=== PATIENT | female | born 1955 ===

== ENCOUNTER 2018-01-21 04:23 | Inpatient (IN) | payer MEDICARE ==
[2018-01-21] VITALS (8 sets, daily range): BP systolic 96–126; BP diastolic 67–88
[~2018-01-21] VITALS: Ht 149.9 cm; Wt 87.0 kg
--- NOTE | 2018-01-21 04:30 | NUR ---
PT TO RM 13 VIA EMS.
--- NOTE | 2018-01-21 04:42 | NUR ---
PT LYING ON R SIDE. REFUSED TO LAY ON BACK DUE TO PAIN.
--- NOTE | 2018-01-21 04:43 | NUR ---
DR LOCKETT AT BEDSIDE.
[2018-01-21] MEDS ORDERED: ACIPHEX20 MG PO (04:48)
[2018-01-21] MEDS ORDERED: METHADONE HCL10 MG PO (04:48)
[2018-01-21] MEDS ORDERED: AMLODIPINE BESYL5 MG PO (04:49)
[2018-01-21] MEDS ORDERED: LOSARTAN POT50 MG PO (04:49)
[2018-01-21] MEDS ORDERED: ASPIRIN 8181 MG PO (04:49)
[2018-01-21 05:16] LABS: HEMATOCRIT 45.3 % (37.0-47.0); HEMOGLOBIN 14.3 g/dl (12.0-16.0); IMMATURE GRANULOCYTES 0.3 % (0.0-5.0); MEAN CELL VOLUME 86.3 fL CALC (80.0-100.0); MEAN CORPUSCULAR HGB 27.2 pG CALC (26.0-32.0); MEAN CORPUSCULAR HGB CONC 31.6 g/L CALC (32.0-36.0); NEUT# 12.7 thou/uL (2.00-7.15); RED BLOOD COUNT 5.25 mill/uL (4.20-5.60)
[2018-01-21 05:29] LABS: ALBUMIN 4.2 g/dL (3.2-5.0); ALKALINE PHOSPHATASE 139 u/l (38-126); AMYLASE 53 u/l (30-110); ANION GAP 16 (6-22 (CALC)); BUN 21 mg/dL (7-17); BUN/CREATININE RATIO 28 (12-20 (CALC)); CARBON DIOXIDE 25 mmol/l (22-30); CHLORIDE 102 mmol/l (95-108); CREATININE 0.7 mg/dL (0.5-1.0); GFR > 60 ML/MIN (>=60 (CALC)); GFR FOR AFR.AMER. > 60 ML/MIN (>=60 (CALC)); LIPASE 53 u/l (23-300); POTASSIUM 4.3 mmol/l (3.5-5.1); SGOT/AST 32 u/l (14-36); SODIUM 139 mmol/l (137-146)
[2018-01-21 05:41] LABS: MYOGLOBIN 71 ng/mL (0 - 62)
--- NOTE | 2018-01-21 05:57 | NUR ---
PT RELATED NAUSEA IS GONE AND PAIN IS MUCH IMPROVED. PT AMB TO BATHROOM.
--- NOTE | 2018-01-21 06:13 | NUR ---
PT TO CT.
[2018-01-21 06:25] LABS: URINE BILIRUBIN - DIPSTICK NEGATIVE (NEGATIVE); URINE BLOOD DIPSTICK NEGATIVE (NEGATIVE); URINE CLARITY TURBID; URINE COLOR YELLOW; URINE GLUCOSE - DIPSTICK NEGATIVE (NEGATIVE); URINE KETONE 15 mg/dL (NEGATIVE); URINE LEUK ESTERASE NEGATIVE (NEGATIVE); URINE NITRITE - DIPSTICK NEGATIVE (Negative); URINE PH 5.5 (4.5-8.0); URINE PROTEIN - DIPSTICK NEGATIVE (NEG-TRACE); URINE SPECIFIC GRAVITY >=1.030
--- NOTE | 2018-01-21 06:34 | NUR ---
PT RETURNED FROM CT. NO C/O PAIN OR NAUSEA AT THIS TIME.
[2018-01-21 06:35] LABS: URINE BACTERIA FEW hpf; URINE SQUAMOUS EPITHELIAL CELL FEW EPI/hpf (0-FEW)
[2018-01-21 06:36] LABS: URINE MUCUS RARE hpf (NONE-FEW)
--- NOTE | 2018-01-21 06:50 | NUR ---
REPORT GIVEN TO SARAH RAE.
--- NOTE | 2018-01-21 07:00 | NUR ---
PT ALERT AND RESPONSIVE RT SIDE LYING IN NO DISTRESS, VSS.DENIES PAIN OR NAUSEA AT THIS TIME. LARGE HERNIA NOTED TO ENTIRE ABDOMEN, PT STATES HAS BEEN GETTING LARGER "FOR YEARS".
--- NOTE | 2018-01-21 07:47 | NUR ---
0705 PT ADAMENTLY REFUSES NG TUBE PLACEMENT AT THIS TIME. DISCUSSED RISKS OF SBO AND NEED FOR DECOMPRESSION OF STOMACH. PT STATES "I'LL LET YOU KNOW WHEN I NEED IT". PT DENIES NAUSEA AT THIS TIME.
--- NOTE | 2018-01-21 08:21 | NUR ---
SPOKE WITH DR ENNIS REGARDUING INCREASE IN PT NAUSEA AND REFUSAL OF NG TUBE. NO NEW ORDERS RECEIVED. DR ENNIS STATES HE IS ON HIS WAY IN AND WILL SEE PT.
--- NOTE | 2018-01-21 08:42 | NUR ---
PT STILL ADAMENTLY REFUSING NG TUBE. TRANSPORTED TO CT VIA STRETCHER IN STABLE CONDITION WIHT IN ATTENDANCE
--- NOTE | 2018-01-21 08:52 | NUR ---
PT CAME FROM ER VIA STRETCHER BY BUTCH MONTALVO. INVESTMENT ACCOUNTANT IN ROOM TO OBTAIN VS. SAFETY PRECAUTIONS REINFORCED AND CALL LIGHT IN REACH.
[2018-01-21] MEDS ORDERED: METHADONE10 M1 PO (11:10)
[2018-01-21] MEDS ORDERED: DOXEPIN HCL100 MG PO (11:17)
[2018-01-21] MEDS ORDERED: TIZANIDINE HCL4 MG PO (11:21)
[2018-01-21] MEDS ORDERED: OXYCODONE20 MG PO (11:24)
--- NOTE | 2018-01-21 11:41 | NUR ---
MEDICATED PT WITH ZOFRAN SEE EMAR. COOL WASHCLOTH PROVIDED. PT DENIES ANY OTHER NEEDS AT THIS TIME. CALL LIGHT IN REACH.
--- NOTE | 2018-01-21 12:00 | NUR ---
HUONG ASSISTED WITH NG TUBE PLACEMENT. PT TOELREATED WELL BUT THEN STARTED TO YELL FOR US TO REMOVED NG TUBE THAT IT HURTS. NG TUBE REMOVED. NOTIFEID DR. ENNIS.
--- NOTE | 2018-01-21 13:34 | NUR ---
ASSESSMENT DONE TELE IN PLACE. PT IS A&O X3. 22 LH THAT APPEARS HEALTHY. RESPS EVEN AND UNLABORED. PT DENIES NEEDS AT THIS TIME. CALL LIGHT IN REACH.
--- NOTE | 2018-01-21 13:59 | NUR ---
DR. WATTS AT BEDSIDE TO ASSESS PT.
--- NOTE | 2018-01-21 14:50 | NUR ---
PT WENT DOWN TO OR VIA STRETCHER BY JOYCE.
--- NOTE | 2018-01-21 18:47 | NUR ---
PT CAME FROM OR VIA BED BY BUTCH MENDOZA. PT IS DROWSY. 02 3L/MIN VIA NC. ABD BINDER IN PLACE AND X2 FRANCOIS TUBES IN PLACE. LR 75 INFUSING WELL. IN ROOM. CALL LIGHT IN REACH.
--- NOTE | 2018-01-21 19:15 | NUR ---
BEDSIDE REPORT RECEIVED FROM KAYY HEALY. PT IS RESTLESS WITH FACIAL GRIMACING AND MOANING/YELLING OUT IN PAIN. MOVING FROM LEFT TO RIGHT SIDE IN BED; ENCOURAGED TO LAY STILL UNTIL MEDICATION IS GIVEN, BUT ROLLS ONTO HER RIGHT SIDE. ABDOMINAL BINDER IN PLACE AND 2 FRANCOIS DRAINS LABELED #1 AND #2 WITH MINIMAL BLOODY DRAINAGE. PT APPEARS VERY ANXIOUS. SAFETY MEASURES IN PLACE.
--- NOTE | 2018-01-21 19:45 | NUR ---
MORHINE AND ATIVAN BOTH GIVEN IV AND PT ENCOURAGED TO RELAX. OXYGEN 2L NC ON AND OXYGEN SATURATION 95%. VS ARE STABLE. SCD'S ON. LUNGS CLEAR. AT BEDSIDE.
--- NOTE | 2018-01-21 20:20 | NUR ---
PT RESTING QUIETLY ON RIGHT SIDE WITH EYES CLOSED. MORPHINE AND ATIVAN EFFECTIVE. STATES HE WILL GO HOME NOW THAT SHE "HAS SETTLED DOWN."
--- NOTE | 2018-01-21 23:51 | NUR ---
MIDNIGHT TORADOL GIVEN; PT GUARDING ABDOMEN; PILLOW GIVEN FOR SPINLTING AND ABDOMINAL BINDER STILL IN PLACE. FRANCOIS DRAINS DRAINING SANGINOUS; EMPTIED AT THIS TIME FRANCOIS #1 5ML OUT; FRANCOIS #2 30ML OUT. PT EDUCATED ON IS; MORE RECEPTIVE AND TALKATIVE. METHADONE MEDICATION PUT IN MEDROOM FOR PHARMACY.
[2018-01-22 00:25] VITALS: BP 106/66
--- NOTE | 2018-01-22 01:52 | NUR ---
PT ASSISTED TO BSC X 1 PERSON ASSIST; UNABLE TO VOID AT THIS TIME. BLADDER SCAN REPORTS ONLY 75CC IN BLADDER. IV FLUIDS CONTINUE AT 75ML/HR. DILAUDID ADMINSTERED NOW. PT REQUESTING ICE.
--- NOTE | 2018-01-22 04:28 | NUR ---
PT RESTING IN BED WITH EYES CLOSED AND NO SIGNS OF DISTRSS. RESPIRATIONS EVEN AND UNLABORED ON OXYGEN. STILL HAS NOT VOIDED THIS SHIFT; WILL ASSIST TO BSC TO ENCOURGE VOID. SAFETY MEASURES IN PLACE. CALL LIGHT WITHIN REACH.
--- NOTE | 2018-01-22 05:30 | NUR ---
PT UP TO VOID 50ML OF DARK YELLOW CLEAR URINE. PVR 127ML. DENIES FEELING LIKE SHE NEEDS TO VOID, DENIES FULLNESS OR BLOAT SENSATION. MINIMAL PO INTAKE BESIDES ICE CHIPS AND FLUIDS INFUSING AT 75ML/HR. WILL CONTINUE TO MONITOR I&OS. ABDOMINAL BINDER REMOVED AND REPLACED R/T UPWARD MOVEMENT. MIDLINE CEM AND TEGADERM CDI; 2 LAP SITES CDI WITH FRANCOIS DRAIN IN EACH. ANOTHER 10ML OUTPUT FROM FRANCOIS #1 AND ANOTHER 20ML OUTPUT FROM FRANCOIS #2.
[2018-01-22 05:37] VITALS: BP 126/79
[2018-01-22 06:07] LABS: IMMATURE GRANULOCYTES 0.4 % (0.0-5.0); MEAN CELL VOLUME 88.2 fL CALC (80.0-100.0); MEAN CORPUSCULAR HGB CONC 31.8 g/L CALC (32.0-36.0); NEUT# 12.27 thou/uL (2.00-7.15); RED BLOOD COUNT 4.39 mill/uL (4.20-5.60); RED CELL DISTRI WIDTH 15.2 % (11.5-15.5)
[2018-01-22 06:08] LABS: HEMATOCRIT 38.7 % (37.0-47.0); HEMOGLOBIN 12.3 g/dl (12.0-16.0)
[2018-01-22 06:17] LABS: ALKALINE PHOSPHATASE 90 u/l (38-126); ANION GAP 11 (6-22 (CALC)); BILIRUBIN, TOTAL 0.7 mg/dL (0.0-1.4); BUN 18 mg/dL (7-17); BUN/CREATININE RATIO 21 (12-20 (CALC)); CARBON DIOXIDE 27 mmol/l (22-30); CHLORIDE 106 mmol/l (95-108); CREATININE 0.9 mg/dL (0.5-1.0); GFR > 60 ML/MIN (>=60 (CALC)); GFR FOR AFR.AMER. > 60 ML/MIN (>=60 (CALC)); MAGNESIUM 1.8 mg/dL (1.6-2.3); POTASSIUM 4.2 mmol/l (3.5-5.1); SGOT/AST 34 u/l (14-36); SODIUM 140 mmol/l (137-146)
[2018-01-22 06:21] LABS: ALBUMIN 3.2 g/dL (3.2-5.0); TOTAL PROTEIN 6.2 g/dL (6.3-8.2)
--- NOTE | 2018-01-22 07:45 | NUR ---
REPORT RECEIVED FROM BUTCH MARK. PT SLEEPING AT THIS TIME. CALL LIGHT WITHIN REACH.
--- NOTE | 2018-01-22 09:00 | NUR ---
PT SITTING UPRIGHT IN BED. REPORTS SEVERE ABDOMINAL PAIN. PAIN MEDS AND SCHEDULES REVIEWED. PLAN OF CARE DISCUSSED. DIET OF NPO EXCEPT ICE CHIPS REVIEWED. REPORTING OF CONCERNS ENCOURAGED. ABDOMINAOL BINDER IN PLACE. ABDOMINAL FRANCOIS DRAINS X 2 NOTED, DRAINING SANGINOUS FLUID. O2 SAT 84 % ON RA. O2 @ 3L VIA NC APPLIED, O2 RECOVERED TO 91%. LR @ 75ML/HR IN #22LH W/O DIFFICULTY. NO REDNESS/SWELLING. IS AT BEDSIDE. USE ENCOURAGED. PT STATES UNDERSTANDING.
[2018-01-22 09:10] VITALS: BP 138/87
[2018-01-22 11:45] VITALS: BP 144/83
--- NOTE | 2018-01-22 13:00 | NUR ---
DR. WATTS IN TO SEE PT. AT THIS TIME.
[2018-01-22 16:23] VITALS: BP 167/80
--- NOTE | 2018-01-22 16:30 | NUR ---
PT TRANSFERED TO CHAIR AT BEDSIDE. REPORTS LOTS OF PAIN W/ MOVEMENT. PILLOW SPLINTING ENCOURAGED. FAMILY AT BEDSIDE.
--- NOTE | 2018-01-22 17:05 | NUR ---
PT ASSISTED BACK TO BED PER HER REQUEST. SPLI NTED W/ TRANSFER. REPORTS PAIN W/ MOVEMENT. AT BEDSIDE AT THIS TIME.
--- NOTE | 2018-01-22 19:00 | NUR ---
Report recieved from offgoing nurse. pt resting in bed with eyes closed. no distress noted. no pain noted. bed in lowest position. call light in place. no other concerns at this time.will monitor.
[2018-01-22 20:00] VITALS: BP 119/71
--- NOTE | 2018-01-22 21:00 | NUR ---
meds tolerated well. pt pain addressed. v/s wnl. pt educated on using I/S. Pt educated on using pillow to reduce pain when coughing. pt voiced that it doesnt help. abdomial binder in place. drg clean, dry and intact. dee drains has serosangious drainage noted. will continue to monitor.
[2018-01-23] VITALS: BP 128/69; BP 142/91
[2018-01-23 04:30] VITALS: BP 150/92
[2018-01-23 05:26] LABS: HEMATOCRIT 35.9 % (37.0-47.0); HEMOGLOBIN 11.3 g/dl (12.0-16.0); IMMATURE GRANULOCYTES 0.4 % (0.0-5.0); MEAN CELL VOLUME 89.1 fL CALC (80.0-100.0); MEAN CORPUSCULAR HGB CONC 31.5 g/L CALC (32.0-36.0); NEUT# 10.55 thou/uL (2.00-7.15); RED BLOOD COUNT 4.03 mill/uL (4.20-5.60); RED CELL DISTRI WIDTH 15.3 % (11.5-15.5)
[2018-01-23 05:41] LABS: ALBUMIN 2.8 g/dL (3.2-5.0); ALKALINE PHOSPHATASE 84 u/l (38-126); ANION GAP 8 (6-22 (CALC)); BILIRUBIN, TOTAL 0.7 mg/dL (0.0-1.4); BUN 14 mg/dL (7-17); BUN/CREATININE RATIO 19 (12-20 (CALC)); CARBON DIOXIDE 30 mmol/l (22-30); CHLORIDE 104 mmol/l (95-108); CREATININE 0.7 mg/dL (0.5-1.0); GFR > 60 ML/MIN (>=60 (CALC)); GFR FOR AFR.AMER. > 60 ML/MIN (>=60 (CALC)); MAGNESIUM 1.9 mg/dL (1.6-2.3); POTASSIUM 4.4 mmol/l (3.5-5.1); SGOT/AST 27 u/l (14-36); SODIUM 138 mmol/l (137-146); TOTAL PROTEIN 5.8 g/dL (6.3-8.2)
--- NOTE | 2018-01-23 07:30 | NUR ---
PT RESTING INBED WITH EYES CLOSED AROUSES EASILY TO VERBAL STIMULI, COMPLAINS OF DISCOMFORT TO ABD, ABD BINDER IN PLACE INCISIONAL DRESSING CD&I WITH FRANCOIS X 2 DECOMPRESSED, WITH SERO/SANG DRNG IN BOTH #2 HAS > PUTPUT THAN #1, IVF INFUSING AT PRESCRIBED RATE, PT ENCOURAGED TO USE IS, EDUCATED REGARDING PLAN OF CARE TOLDAY INCULDING IS USAGE, OOB AMBULATION AND POSSIBLE STEVENS REMOVAL, VERBALIZES UNDERSTANDING AND IMMEDIATELY STATES WELL I WANT PAIN MEDICATION BEFORE I AMBULATED, EDUCATED REGARDING PAIN CONTROL, ALL QUESTIONS ANSWERED, CALL PERDUE WITHIN REACH, SAFETY MEASURES REINFORCED, WILL CONTINUE TO MONITOR.
--- NOTE | 2018-01-23 09:14 | NUR ---
PT TOLERATING ICE CHIPS, DOZES FREQUENTLY, CALL PERDUE WITHIN REACH, WILL CONTINUE TO MONITOR.
--- NOTE | 2018-01-23 10:44 | NUR ---
pt oob with mod assist, stood at bedside and ambulated in place, pt cries out and is mildly short of breath states that the abd binder is tight but she knows it needs to be, back into bed with same assist, pt is admitted 2 pack a day smoker o2 sats on room air after activity 76% placed back on nc and within 45 sec sats back up to 86%, comfort measures provided, call malagon within reach. Will continue to monitor.
[2018-01-23 11:28] VITALS: BP 119/57
--- NOTE | 2018-01-23 12:30 | NUR ---
in to see patient, plan of care discussed
--- NOTE | 2018-01-23 13:13 | NUR ---
MEDCIATED FOR COMPLAINTS OF PAIN ORDERED, PT STATES SHE SAT UP IN BED A FEW TIMES, NOT WITNESSED BY THIS NURSE
--- NOTE | 2018-01-23 14:12 | NUR ---
pt asked questions about rehab and whehter she should go, educated pt regarding her difficulty getting oob to stand at bedside today on PO day #2 and that she was independent prior to arrival to have surgery, verbalizes aunderstanding and is asking for case mgmt to talk to her about options.
--- NOTE | 2018-01-23 15:37 | NUR ---
PT AT BEDSIDE FOR EVAL AND TREAT VISITOR ALSO AT BEDSIDE
[2018-01-23 15:59] VITALS: BP 146/87
--- NOTE | 2018-01-23 16:08 | NUR ---
REPORT RECEIVED FROM TASH, INTRODUCED SELF TO PT. PT C/O PAIN 11/26 MEDICATED PER APR. PT SITTING IN RECLINER, CALL LIGHT IN REACH,CONTINUE TO MONITOR.
--- NOTE | 2018-01-23 18:22 | NUR ---
ENTERED ROOM, PT RESTING IN BED ,PT STATES SHE WOULD RATHER HAVE THE DILUADID INSTEAD OF THE TORADOL. PT MEDICATED FOR PAIN 10/27 WITH DILAUDID. CALL LIGHT IN REACH,CONTINUE TO MONITOR.
--- NOTE | 2018-01-23 19:00 | NUR ---
REPORT RECIEVED FROM OFFGOING NURSE. PT RESTING IN BED WITH EYES CLOSED. IV PATENT. DRG CLEAN DRY AND INTACT. BOWEL SOUNDS PRESENT. PT ENCOURAGE TO USE I/S AND AMBULATE. PT VOICED UNDERSTANDING. BED IN LOWEST POSTION.CALL LIGHT WITHIN REACH. WILL CONTINUE TO MONITOR.
[2018-01-23 19:30] VITALS: BP 158/77
[2018-01-24] VITALS: BP 148/90
[2018-01-24 04:15] VITALS: BP 139/84
--- NOTE | 2018-01-24 06:22 | NUR ---
PT FRANCOIS EMPTIED. DRAINAGE SEROSANGIOUS. DRG CLEAN DRY AND INTACT. PT STATES SHE IS HAVNG GAS. NO BM. DENIES NAUSEA/VOMITING. PT EDUCATED ON AMBULATING AND USING INCENITIVE SPIRAMETER. PT VOICED UNDERSTANDING.PT LACKS MOTIVATION TO AMB. STATES SHE IS IN CONTINOUS PAIN ALTHOUGH SHE IS SLEEP MAJORITY OF TIME.PT ENCOURAGED TO REPOSITION AND USE PILLOW WHEN COUGHING TO DECREASE PAIN. PT STATES IT DOESNT HELP. BED IN LOWEST POSITON. CALL LIGHTIN REACH WILL MONITOR.
[2018-01-24 06:23] LABS: HEMATOCRIT 34.6 % (37.0-47.0); HEMOGLOBIN 10.7 g/dl (12.0-16.0); IMMATURE GRANULOCYTES 0.5 % (0.0-5.0); MEAN CELL VOLUME 89.4 fL CALC (80.0-100.0); MEAN CORPUSCULAR HGB 27.6 pG CALC (26.0-32.0); MEAN CORPUSCULAR HGB CONC 30.9 g/L CALC (32.0-36.0); NEUT# 8.95 thou/uL (2.00-7.15); RED BLOOD COUNT 3.87 mill/uL (4.20-5.60)
[2018-01-24 06:41] LABS: ALBUMIN 2.9 g/dL (3.2-5.0); ALKALINE PHOSPHATASE 89 u/l (38-126); ANION GAP 12 (6-22 (CALC)); BILIRUBIN, TOTAL 0.8 mg/dL (0.0-1.4); BUN 9 mg/dL (7-17); BUN/CREATININE RATIO 15 (12-20 (CALC)); CARBON DIOXIDE 30 mmol/l (22-30); CHLORIDE 101 mmol/l (95-108); CREATININE 0.6 mg/dL (0.5-1.0); GFR > 60 ML/MIN (>=60 (CALC)); GFR FOR AFR.AMER. > 60 ML/MIN (>=60 (CALC)); MAGNESIUM 1.9 mg/dL (1.6-2.3); POTASSIUM 3.8 mmol/l (3.5-5.1); SGOT/AST 23 u/l (14-36); SODIUM 139 mmol/l (137-146)
[2018-01-24 08:00] VITALS: BP 133/67
--- NOTE | 2018-01-24 10:31 | NUR ---
PT AWAKE, ALERT, ORIENTED X 3. PT UNCOMFORTABLE IN BED, SAYS IT IS TOO HARD. PT MEDICATED FOR ABDOMINAL AND BACK PAIN TWICE ALREADY. IV SITE CHANGED OUT FROM LEFT HAND TO RIGHT HAND PER CANNULA KINKING. PT OOB TO CHAIR AT THIS TIME.
--- NOTE | 2018-01-24 14:01 | NUR ---
PT SEEN BY DR WATTS THIS AM, QUESTIONS ANSWERED AND PLAN OF CARE REVIEWED. STEVENS CATHETER REMOVED, IVF DISCONTINUED. NO DISTRESS, ALTHOUGH PT CONTINUES WITH PAIN MEDS OFTEN AVAILABLE.
[2018-01-24 15:29] VITALS: BP 109/45
--- NOTE | 2018-01-24 16:53 | NUR ---
PT PROVIDED PERCOCET FOR PAIN, WHICH DID NOT DO WELL FOR HER DILAUDID. PT CONTINUES TO MOVE AROUND IN THE ROOM. AT BEDSIDE.
[2018-01-24 19:00] VITALS: BP 142/85
--- NOTE | 2018-01-24 21:01 | NUR ---
PT REQUESTED PAIN DILAUDID FOR PAIN REPORTED 08/26. PT IS C/O OF LACK OF TV CHANNELS AND INTERNET SERVICE. SHE IS TELLING ME ABOUT A MURDER MYSTERY TV SHOW SHE KEEPS UP W/AND CANNOT WATCH AND MORE. PT MEDICATED ORDERS PROVIDE. DRAINS DRAINING BLOODY DRAINAGE X2, DRESSING TO ABD AND DRAIN TUBES CDI. PT C/O MILD COUGH FROM UPPER CHEST AREA/LUNG SOUNDS ARE DIM LOWER AND CLEAR THROUGHOUT. NO NEW NOTED EDEMA, SKIN APPEARS INTACT. LOCX3. CALL LIGHT IN HAND, LIGHTS OFF AND TV ON. WILL CONTINUE TO MONITOR.
[2018-01-25] VITALS: BP 131/88
--- NOTE | 2018-01-25 00:25 | NUR ---
PT MEDICATED ORDERS PROVIDE FOR PAIN REPORTED 5-08/26. PT WAS SLEEPING SOUNDLY UPON ENTERING ROOM. NO S/S OF DISTRESS NOTED. WILL CONTINUE TO MONITOR. AIDE IN W/ PT NOW OBTAINING V/S
--- NOTE | 2018-01-25 02:42 | NUR ---
PT MEDICATED FOR PAIN 10/27, FRANCOIS DRAINS DRAINING BLOODY FLUID W/GOOD BULB SUCTION MAINTAINED. DRESSING TO INCISIONAL AREA AND FRANCOIS DRAIN ACCESS CDI. PT ASSISTED IN REPOSITIONING. O2 NC ON @2L. PT DENIES ANY OTHER NEEDS, CALL LIGHT AT BEDSIDE.
[2018-01-25 04:45] VITALS: BP 123/84
--- NOTE | 2018-01-25 05:15 | NUR ---
LAB CALLED DOWN TO NOTIFY ME THAT PT IV WAS DISLODGED. UPON ENTERING ROOM, PT WAS SLEEPING SOUNDLY AND IV WAS PULLED OUT AND DANGLING FROM PT'S RIGHT HAND DRAPED OFF OFF OF THE BED, PT STILL SOUND AASLEEP. I AWOKE PT AND REMOVED IV FROM HAND. WILL OBTAIN NEW IV ACCESS.
--- NOTE | 2018-01-25 05:36 | NUR ---
PT AMBULATED TO RESTROOM AND BACK TO BED. I INSTRUCTED PT TO PULL RED CORD UPON BEING READY TO RETURN TO BED, I ENTERED THE ROOM W/PT'S PAIN MEDICATION SHE WAS UP NEXT TO BED AND HAD NOT CALLED. I DISCUSSED W/PT SAFETY PRECAUTIONS AND ASKED IF SHE WOULD PLEASE CALL SHE NEEDS TO GET UP DUE TO FRANCOIS DRAINS, O2 AND PAIN/POST-OP CONDITIONS, SHE EXPRESSED UNDERSTANDING VERBALLY. CALL LIGHT LEFT IN HAND AND LIGHTS OFF.
[2018-01-25 06:01] LABS: HEMATOCRIT 33.3 % (37.0-47.0); HEMOGLOBIN 10.5 g/dl (12.0-16.0); MEAN CELL VOLUME 88.6 fL CALC (80.0-100.0); MEAN CORPUSCULAR HGB 27.9 pG CALC (26.0-32.0); MEAN CORPUSCULAR HGB CONC 31.5 g/L CALC (32.0-36.0); RED BLOOD COUNT 3.76 mill/uL (4.20-5.60); RED CELL DISTRI WIDTH 14.9 % (11.5-15.5)
[2018-01-25 06:10] LABS: ANION GAP 9 (6-22 (CALC)); BUN 9 mg/dL (7-17); BUN/CREATININE RATIO 14 (12-20 (CALC)); CARBON DIOXIDE 30 mmol/l (22-30); CHLORIDE 104 mmol/l (95-108); CREATININE 0.6 mg/dL (0.5-1.0); GFR > 60 ML/MIN (>=60 (CALC)); GFR FOR AFR.AMER. > 60 ML/MIN (>=60 (CALC)); POTASSIUM 3.6 mmol/l (3.5-5.1); SODIUM 140 mmol/l (137-146)
[2018-01-25 08:00] VITALS: BP 154/95
--- NOTE | 2018-01-25 10:39 | NUR ---
PT HAS BEEN OOB IN CHAIR TODAY, THEN SHOWERED THIS AM. PT STILL RECEIVES PAIN MEDICINES THEY COME DUE, STATES THAT SHE NEEDS IT PER HIGH DOSES AT HOME. PT SPEAKS OF STOPPING SMOKING, ENCOURAGED TO FOLLOW THROUGH.
[2018-01-25 11:47] VITALS: BP 130/79
[2018-01-25 15:40] VITALS: BP 137/85
--- NOTE | 2018-01-25 16:50 | NUR ---
PT UP IN ROOM TODAY, IMPROVED IN MOBILITY. PT MEDICATED NEEDED. NO ACUTE DISTRESS,
--- NOTE | 2018-01-25 18:27 | NUR ---
PT PROVIDED TORADOL AND DILAUDID TONIGHT. SHE HAS BEEN MOVING WELL IN THE ROOM, HAD BM TODAY. NO ACUTE DISTRESS NOTED.
[2018-01-25 20:00] VITALS: BP 138/80
--- NOTE | 2018-01-25 21:40 | NUR ---
PT REQUESTING PAIN MED FOR PAIN REPORTED 08/26. REFUSING PERCOCET STATING SHE WAS TOLD SHE COULD HAVE DILAUDID EVERY TWO HOURS TONIGHT IF SHE WANTED AND SHE WANTS DILAUDID. MEDICATED ORDERS PROVIDE. DRESSING TO ABD CDI, FRANCOIS DRAINS DRAINING W/BULB SUCTION. LUNG SOUNDS ARE CLEAR, NO NOTED EDEMA. PT ASSISTED TO RESTROOM AND BACK TO BED. CALL LIGHT AT SIDE.
[2018-01-26 00:03] VITALS: BP 127/64
--- NOTE | 2018-01-26 00:25 | NUR ---
PT IS SLEEPING SOUNDLY. V/S OBTAINED BY AIDE. PT BARELY AWOKE AND QUICKLY RETURNED TO SLEEP. NO S/S OF DISTRESS NOTED. DRESSING TO ABD CDI AND FRANCOIS DRAINS W/GOOD BULB SUCTION. CALL LIGHT AT SIDE.
--- NOTE | 2018-01-26 01:45 | NUR ---
PT APPEARS TO BE SLEEPING VERY SOUNDLY AT THIS TIME. NO S/S OF DISTRESS NOTED. CALL LIGHT AT BEDSIDE.
[2018-01-26 05:00] VITALS: BP 97/56
--- NOTE | 2018-01-26 06:11 | NUR ---
PT DRAINS EMPTIED: 18 FROM FRANCOIS DRAIN #1/0CC FROM FRANCOIS DRAIN #2. DRESSING TO ABD CDI. PT WAS SLEEPING VERY SOUNDLY UPON ENTERING ROOM. PT DENIES ANY OTHER NEEDS AND STATES PAIN IS UNDER CONTROL AT THIS TIME. CALL LIGHT AT BEDSIDE AND PT ENCOURAGED TO CALL IF ANY OTHER NEEDS ARISE.
--- NOTE | 2018-01-26 07:46 | NUR ---
REPORT RECEIVED FROM BUTCH DSOUZA. PT SITTING UPRIGHT ON SIDE OF BED. ONLY COMPLAINTS REGARDING BED AND TV CHANNELS. PT STATES ANTICIPATION OF DISCHARGE. PLAN OF CARE REVIEWED. CALL LIGHT WITHIN REACH.
[2018-01-26 08:24] VITALS: BP 151/95
--- NOTE | 2018-01-26 10:26 | NUR ---
SPOKE W/ DR. WATTS VIA PHONE. OK TO D/C FROM HIS STANDPOINT, ORDER TO REMOVE LEFT FRANCOIS PRIOR TO DISCHARGE HOME. F/U IN HIS OFFICE FRIDAY FOR RIGHT FRANCOIS REMOVAL.
[2018-01-26 11:50] VITALS: BP 141/84
--- NOTE | 2018-01-26 14:00 | NUR ---
LEFT ABDOMINAL FRANCOIS D/C'D PER DR. WATTS. GAUZE/TD APPLIED. EMPYTING OF RIGHT FRANCOIS REVIEWED W/ PT. PT STATES UNDERSTANDING. F/U APPT MADE W/ DR. WATTS IN [facility] OFFICE FOR Friday01/28/18 @ 1300.
--- NOTE | 2018-01-26 14:48 | NUR ---
Discharge instructions given. Patient verbalizes understanding of same. Discharged in stable condition via Wheelchair to Home with spouse. All belongings sent with pt.
== END 2018-01-26 14:48 | disposition home or self-care (01) | DRG 355 ==
LOC: ED 04:23 → ED-I 05:10 → ED 07:04 → ED-I 07:05 → MS2 07:05
PROVIDERS: Emergency Medicine; Internal Medicine; ADMIT Internal Medicine Nephrology; ATTEND Internal Medicine Nephrology
PROC: 0WUF0JZ Supplement Abdominal Wall with Synthetic Substitute, Open Approach (ICD-10-PCS; principal; 2018-01-21)
DX: K43.0 Incisional hernia with obstruction, without gangrene (principal); E66.01 Morbid (severe) obesity due to excess calories; I10 Essential (primary) hypertension; F17.210 Nicotine dependence, cigarettes, uncomplicated; M54.30 Sciatica, unspecified side; M79.7 Fibromyalgia; F41.1 Generalized anxiety disorder; G89.4 Chronic pain syndrome; K21.9 Gastro-esophageal reflux disease without esophagitis; R33.8 Other retention of urine; Z68.38 Body mass index [BMI] 38.0-38.9, adult; Z98.84 Bariatric surgery status; Z79.891 Long term (current) use of opiate analgesic
CPT/HCPCS: J0131; J0692; J2060; J2710; S0164